=== PATIENT | female | born 1950 | race Caucasian/White ===

== ENCOUNTER 2022-07-22 11:09 | Outpatient (CLI) | payer OTHER, SELFPAY ==
[2022-07-22 15:02] LABS: Albumin* 4.9 g/dL (3.3-5.0); Chloride* 103 mmol/L (96-114)
[2022-07-22 15:03] LABS: Potassium* 3.8 mmol/L (3.6-5.1); Sodium* 140 mmol/L (135-149)
[2022-07-22 15:05] LABS: Aspartate Amino Transferase* 31 U/L (12-35); Bilirubin Total* 0.8 mg/dL (0.1-1.5); Blood Urea Nitrogen* 18 mg/dL (7-30); Carbon Dioxide* 27 mmol/L (20-32); Cholesterol* 185 mg/dL (90-199); Creatinine* 0.7 mg/dL (0.5-1.5); Estimated Glomerular Filt Rate 92 ml/min; Total Protein* 7.4 g/dL (6.0-8.3)
[2022-07-22 15:06] LABS: Alanine Aminotransferase* 20 U/L (4-35); Alkaline Phosphatase* 59 U/L (40-150); Glucose* 88 mg/dL (60-115); HDL Cholesterol* 74 mg/dL (>=50); LDL Cholesterol Calculated 85 mg/dL (<100); Triglycerides* 129 mg/dL (40-149)
[2022-07-22 16:18] LABS: Vitamin D 25 Hydroxy* 67 ng/mL (30-80)
--- NOTE | 2022-08-28 15:32 | PC.SOCIAL ---
Phone call to pt at [phone]. Informed pt that this worker received a referral from Dr. Vasquez regarding pt getting more information on services pt may qualify for due to pt's disability. Provided pt with contact information for [employer] [facility] [place] at [phone]. Informed pt that the [employer] [facility] is an excellent resource to walk through the disability process and also see what other services pt may qualify for. Pt stated she will call the [employer]. Informed pt that the Social Work Department is available to her if she has any other questions.
== END 2022-07-22 11:10 | disposition home or self-care (01) ==
PROVIDERS: PCP Family Medicine; Visit Provider Family Medicine
DX: M85.89 Other specified disorders of bone density and structure, multiple sites (principal); I10 Essential (primary) hypertension; E78.5 Hyperlipidemia, unspecified; F41.9 Anxiety disorder, unspecified
CPT/HCPCS: 80053; 80061; 82306; 84443

== ENCOUNTER 2022-08-27 13:57 | Outpatient (CLI) | payer OTHER, SELFPAY ==
--- NOTE | 2022-08-27 14:04 | CRLHL7_ITS ---
For Patients: As a result of the Cures Act, medical imaging exams and procedure reports are released immediately into your electronic medical record. You may view this report before your referring provider. If you have questions, please contact your health care provider. DXA BONE MINERAL DENSITY STUDY, 08/27/2022 Reason for exam: Osteopenia. Current height (inches): 64.0 Weight (lbs.): 105.0 Menopause age: 45 Ethnicity: White 1. Have you had a previous hip or vertebral fracture? No. 2. Have you had any fractures during your adult life which did not result from significant trauma (e.g., auto accident)? No. 3. Did either of your parents have a hip fracture? No. 4. Do you smoke? No. 5. Have you ever taken Glucocorticoids? No. 6. Do you have rheumatoid arthritis? No. 7. Do you have secondary osteoporosis? No. 8. Do you drink 3 or more alcoholic drinks per day? No. 9. Are you being treated for osteoporosis? No. 10. Have you ever taken any of the following medications: Actonel, Evista, Fosamax, Miacalcin, Reclast, Boniva, Forteo, HRT (i.e., estrogen/hormone therapy), Protelos, Prolia, Vitamin D, Calcium, other ??? please specify. ANSWER: Yes; vitamin D and calcium. 11. Do you have any of the following medical conditions: Anorexia or bulimia, asthma or emphysema, end stage renal disease, hyperparathyroidism, any seizure disorders, cancer, inflammatory bowel diseases, hysterectomy, other ??? please specify. ANSWER: No. 12. What was your maximum height (inches)? 64. 13. Do you perform weight bearing exercise regularly? Yes. 14. Do you regularly consume dairy products? Yes. 15. Do you drink caffeinated beverages? Yes. 16. At what age did your period start? 12. 17. Are you premenopausal? No. 18. How many full-term pregnancies have you had? 1. 19. Have you ever missed your period for more than 6 months in a row (not including or menopause)? No. TECHNIQUE: Bone mineral density study was performed using the [employer]. FINDINGS: The results of the study expressed as bone mineral density (BMD) are as follows: Lumbar Spine L1 to L4: BMD: 0.777 g/cm2. T-score: -2.5. Z-score: -0.2. Neck Left: BMD: 0.626 g/cm2. T-score: -2.0. Z-score: -0.1. Right: BMD: 0.692 g/cm2. T-score: -1.4. Z-score: 0.5. Total Left: BMD: 0.709 g/cm2. T-score: -1.9. Z-score: -0.3. Right: BMD: 0.685 g/cm2. T-score: -2.1. Z-score: -0.5. IMPRESSION: Osteoporosis. COMPARISON: Compared with scan of 08/07/2020, the bone mineral density has decreased by 0.5% at the spine and increased by 2.1% at the hip. *Comparison exams done prior to 03/2020 were performed on different unit, [facility]. JORGE ALBERTO JULES M.D. Diagnostic Radiologist [email or web address] Transcribed: 6:[address]/Dictated by: Jorge Alberto Jules MD @ 08/28/2022 9:20:00 AM (Electronically Signed)
--- NOTE | 2022-08-27 14:45 | PC.SOCIAL ---
Received a referral from Dr. Vasquez to follow up with pt and provide more information on how pt can apply for disability. Made a phone call to pt at [phone]. Pt's answered and informed that pt is at an appointment getting a bone scan done. Provided pt's with the phone number to the social work department and requested that pt call back this worker. states he will have pt call when she gets home. Social work will follow up as necessary.
== END 2022-08-27 13:58 | disposition home or self-care (01) ==
PROVIDERS: PCP Family Medicine; Visit Provider Family Medicine
DX: M85.80 Other specified disorders of bone density and structure, unspecified site (principal); M81.0 Age-related osteoporosis without current pathological fracture
CPT/HCPCS: 77080

== ENCOUNTER 2022-12-09 13:15 | Outpatient (CLI) | payer OTHER, SELFPAY ==
--- NOTE | 2022-12-09 13:20 | CRLHL7_ITS ---
For Patients: As a result of the Century Cures Act, medical imaging exams and procedure reports are released immediately into your electronic medical record. You may view this report before your referring provider. If you have questions, please contact your health care provider. BILATERAL SCREENING MAMMOGRAM WITH COMPUTER-AIDED DETECTION AND TOMOSYNTHESIS TECHNIQUE: CC and MLO views were obtained. These mammographic images have been obtained using full-field digital technique. These mammographic images were interpreted with the benefit of computer-aided detection. Breast Tomosynthesis was used in this interpretation. COMPARISON FILM: 09/19/21, 08/12/20, 08/09/19. FINDINGS: There are scattered areas of fibroglandular density IMPRESSION: There is no radiographic evidence for malignancy. ASSESSMENT: BI-RADS Category 2: Benign RECOMMENDATION: Routine screening mammogram in 1 year. A lay language report of this examination will be provided to the patient. Damon Louis M.D. Diagnostic/Nuclear Medicine Radiologist [email or web address] EDU/Dictated by: Damon Louis MD @ 12/10/2022 8:19:00 AM (Electronically Signed)
== END 2022-12-09 13:16 | disposition home or self-care (01) ==
LOC: MAMMO 13:15
PROVIDERS: PCP Family Medicine; Visit Provider Family Medicine
DX: Z12.31 Encounter for screening mammogram for malignant neoplasm of breast (principal)
CPT/HCPCS: 77063; 77067

== ENCOUNTER 2023-02-08 11:32 | Outpatient (CLI) | payer OTHER, SELFPAY | END 2023-02-08 11:33 | disposition home or self-care (01) | LOC: NFLDREF 11:33 | PROVIDERS: PCP Family Medicine; Visit Provider Obstetrics & Gynecology | DX: R32 Unspecified urinary incontinence (principal) | CPT/HCPCS: 87086 ==

== ENCOUNTER 2023-08-25 10:08 | Outpatient (CLI) | payer OTHER, SELFPAY ==
--- OUTSIDE RECORDS SUMMARY | 2023-08-31 12:00 | XMS_ITS | Continuity of Care Document ---
Author Name Unknown Organization [facility] Address [address] [place] [address] Phone Care Team Providers Care Sheet Rock Applier Name Role Phone Rosemary Butts MD Unavailable Unavailable Allergies, Adverse Reactions, Alerts Substance Reaction Status Criticality codeine Active No Information CEPHALEXIN MONOHYDRATE Active No In formation Medications Medication Instructions Dosage Effective Dates (start - stop) Status Comments tramadol 50 mg tablet TAKE ONE TABLET BY MOUTH TWICE A DAY - Active Fosamax 70 mg tablet take 1 tablet by oral route every week in the morning, at least 30 min before first food, beverage, or medication of day 70 MG - Active SULFASALAZINE 500 MG Tablet Delayed Release TAKE 3 TABLETS TWICE DAILY - Active methotrexate sodium 2.5 mg tablet take 6 tablet by oral route every week 6 tablet - Active folic acid 1 mg tablet TAKE ONE TABLET B Y MOUTH ONCE DAILY - Active pilocarpine 5 mg tablet take 1 tablet by oral route 3-4 times every day - Active ORPHENADRINE CITRATE ER 100 MG Tablet Extended Release 12 Hour TAKE 1 TABLET AT BEDTIME NEEDED - Active Nitrostat 0.[address] 1 tablet by sublingual route at the first sign of an attack; no more than 3 tabs are recommended within a 15 minute period. 0.3 MG - Active aspirin 81 mg tablet,delayed release take 1 tablet by oral route every day 81 MG - Active multivitamin tablet - Active omeprazole 20 mg tablet,delayed release take 1 capsule by oral route every day 1 capsule - Active metoprolol succinate ER 25 mg tablet,extended release 24 hr take 1 tablet by oral route every day 25 MG - Active Restasis 0.05 % eye drops in a dropperette instill 1 drop by ophthalmic route every 12 hours into affected eye(s) 1.00 drop - Active rosuvastatin 40 mg tablet take 1 tablet by oral route every day 40 MG - Active Tylenol Arthritis 650 mg Tab take 2 tablet (1300MG) by oral route 2 times every day 1300 MG - Active Citracal + D Slow Release 600 mg calcium-500 unit Tab, ER take 2 daily - Active Procedures Procedure Date Office/Outpatient Visit, Est Routine Venipuncture Specimen Handling Office/Outpatient Visit, Est Routine Venipuncture Specimen Handling Us Extremity Non-Vasc Real-Time Img Comp l Office/Outpatient Visit, Est Routine Venipuncture Specimen Handling Office/Outpatient Visit, Est Routine Venipuncture Specimen Handling Us Extremity Non-Vasc Real-Time Img Comp l Office/Outpatient Visit, Est Routine Venipuncture Specimen Handling Office/Outpatient Visit, Est Routine Venipuncture Specimen Handling Office/Outpatient Visit, Est Office/Outpatient Visit, Est Routine Venipuncture Assay Of Serum Albumin Assay Of Creatinine Transferase (Ast) (Sgot) Alanine Amino (Alt) (Sgpt) Urinalysis Nonauto W/O Scope Complete Cbc WAuto Diff Wbc Office/Outpatient Visit, Est Routine Venipuncture Specimen Handling Assay Of Serum Albumin Assay Of Creatinine Transferase (Ast) (Sgot) Alanine Amino (Alt) (Sgpt) Vitamin D 25 Hydroxy Complete Cbc WAuto Diff Wbc Phone E/M By Phys 11-20 Min Office/Outpatient Visit, Est Office/Outpatient Visit, Est Office/Outpatient Visit, Est Office/Outpatient Visit, Est Office/Outpatient Visit, Est Routine Venipuncture Complete Cbc WAuto Diff Wbc Assay Of Serum Albumin Assay Of Creatinine Transferase (Ast) (Sgot) Alanine Amino (Alt) (Sgpt) Office/Outpatient Visit, Est Routine Venipuncture Complete Cbc WAuto Diff Wbc Transferase (Ast) (Sgot) Urinalysis Nonauto W/O Scope Office/Outpatient Visit, Est Routine Venipuncture Complete Cbc WAuto Diff Wbc Assay Of Serum Albumin Assay Of Creatinine Transferase (Ast) (Sgot) Alanine Amino (Alt) (Sgpt) Urinalysis Nonauto W/O Scope Office/Outpatient Visit, Est Routine Venipuncture Complete Cbc WAuto Diff Wbc Transferase (Ast) (Sgot) Urinalysis Nonauto W/O Scope Routine Venipuncture Complete Cbc WAuto Diff Wbc Assay Of Serum Albumin Assay Of Creatinine Transferase (Ast) (Sgot) Alanine Amino (Alt) (Sgpt) Office/Outpatient Visit, Est Routine Venipuncture Complete Cbc WAuto Diff Wbc Transferase (Ast) (Sgot) Alanine Amino (Alt) (Sgpt) Urinalysis Nonauto W/O Scope Routine Venipuncture Complete Cbc WAuto Diff Wbc Assay Of Serum Albumin Assay Of Creatinine Transferase (Ast) (Sgot) Alanine Amino (Alt) (Sgpt) Office/Outpatient Visit, Est Routine Venipuncture Complete Cbc WAuto Diff Wbc Transferase (Ast) (Sgot) Urinalysis Nonauto W/O Scope Routine Venipuncture Complete Cbc WAuto Diff Wbc Assay Of Serum Albumin Assay Of Creatinine Transferase (Ast) (Sgot) Alanine Amino (Alt) (Sgpt) Office/Outpatient Visit, Est Routine Venipuncture Complete Cbc WAuto Diff Wbc Transferase (Ast) (Sgot) Urinalysis Nonauto W/O Scope Routine Venipuncture Complete Cbc WAuto Diff Wbc Assay Of Serum Albumin Assay Of Creatinine Transferase (Ast) (Sgot) Alanine Amino (Alt) (Sgpt) Office/Outpatient Visit, Est Routine Venipuncture Complete Cbc WAuto Diff Wbc Transferase (Ast) (Sgot) Urinalysis Nonauto W/O Scope Routine Venipuncture Complete Cbc WAuto Diff Wbc Assay Of Serum Albumin Assay Of Creatinine Transferase (Ast) (Sgot) Alanine Amino (Alt) (Sgpt) Urinalysis Nonauto W/O Scope Office/Outpatient Visit, Est Routine Venipuncture Complete Cbc WAuto Diff Wbc Transferase (Ast) (Sgot) Urinalysis Nonauto W/O Scope Routine Venipuncture Complete Cbc WAuto Diff Wbc Urinalysis Nonauto W/O Scope Assay Of Serum Albumin Assay Of Creatinine Transferase (Ast) (Sgot) Alanine Amino (Alt) (Sgpt) Office/Outpatient Visit, Est Routine Venipuncture Complete Cbc WAuto Diff Wbc Transferase (Ast) (Sgot) Urinalysis Nonauto W/O Scope Routine Venipuncture Complete Cbc WAuto Diff Wbc Urinalysis Nonauto W/O Scope Assay Of Serum Albumin Assay Of Creatinine Transferase (Ast) (Sgot) Alanine Amino (Alt) (Sgpt) Office/Outpatient Visit, Est Urinalysis Nonauto W/O Scope Routine Venipuncture Specimen Handling Complete Cbc WAuto Diff Wbc Assay Of Serum Albumin Assay Of Creatinine Transferase (Ast) (Sgot) Alanine Amino (Alt) (Sgpt) Office/Outpatient Visit, Est Routine Venipuncture Complete Cbc WAuto Diff Wbc Transferase (Ast) (Sgot) Urinalysis Nonauto W/O Scope Routine Venipuncture Complete Cbc WAuto Diff Wbc Urinalysis Nonauto W/O Scope Assay Of Serum Albumin Assay Of Creatinine Transferase (Ast) (Sgot) Alanine Amino (Alt) (Sgpt) Office/Outpatient Visit, Est Routine Venipuncture Complete Cbc WAuto Diff Wbc Transferase (Ast) (Sgot) Urinalysis Nonauto W/O Scope Routine Venipuncture Complete Cbc WAuto Diff Wbc Urinalysis Nonauto W/O Scope Assay Of Serum Albumin Assay Of Creatinine Transferase (Ast) (Sgot) Alanine Amino (Alt) (Sgpt) Office/Outpatient Visit, Est Routine Venipuncture Complete Cbc WAuto Diff Wbc Assay Of Creatinine Transferase Ast Sgot Urinalysis Nonauto W/O Scope Routine Venipuncture Complete Cbc WAuto Diff Wbc Urinalysis Nonauto W/O Scope Assay Of Serum Albumin Assay Of Creatinine Transferase Ast Sgot Alanine Amino Alt Sgpt Office/Outpatient Visit, Est Prescription Generated Per ERX 13 Routine Venipuncture Complete Cbc WAuto Diff Wbc Transferase Ast Sgot Urinalysis Nonauto W/O Scope Routine Venipuncture Complete Cbc WAuto Diff Wbc Urinalysis Nonauto W/O Scope Assay Of Serum Albumin Assay Of Creatinine Transferase Ast Sgot Alanine Amino Alt Sgpt Office/Outpatient Visit, Est Routine Venipuncture Complete Cbc WAuto Diff Wbc Transferase Ast Sgot Urinalysis Nonauto W/O Scope Urinalysis Nonauto W/O Scope Routine Venipuncture Complete Cbc WAuto Diff Wbc Assay Of Serum Albumin Assay Of Creatinine Transferase Ast Sgot Alanine Amino Alt Sgpt Anti Rheum Drugthxpyrx'D/Gvn Routine Venipuncture Complete Cbc WAuto Diff Wbc Transferase Ast Sgot Urinalysis Nonauto W/O Scope Advance Directives Directive Yes / No Effective Date File Name No Information Encounters Encounter Description Practice Location Reason(s) For Visit Diagnoses Date Provider Providers Copied on Encounter [facility] , [address], [place], [address], [place] tel:[phone] [facility] , No Information 3 Benjamín Riley. [address], [address], [place], [address], [place]. tel:[phone] [facility] , [address], [place], [address], [place] tel:[phone] [facility] , No Information 3 Benjamín Riley. [address], [address], [place], [address], [place]. tel:[phone] Office/Outpa tient Visit, Est [facility] , [address], [place], [address], [place] tel:[phone] [facility] , No Information 3 Benjamín Riley. [address], [address], [place], [address], [place]. tel:[phone] Referring Provider: Rosemary Butts, [address], [place], [address]. tel:[phone] [facility] , [address], [place], [address], [place] tel:[phone] [facility] , No Information 3 Benjamín Rosemary. [address], [address], [place], [address], [place]. tel:[phone] [facility] , [address], [place], [place], [facility], [place] tel:[phone] [facility] , No Information 3 Benjamín Riley. [address], [address], [place], [place], [facility], [place]. tel:[phone] Office/Outpa tient Visit, Est [facility] , [address], [place], [place], [facility], [place] tel:[phone] [facility] , Rheumatoid arthritis (chief complaint)Yan gregory (chief complaint)Dr eddie dumont (chief complaint) Other senior care (current) drug therapyIntra cardiac thrombosis, not elsewhere classifiedOt her chronic painRheumato id arthritis with rheumatoid factor of multiple sites without organ or systems involvementS jogren syndrome, unspecifiedP ain in unspecified shoulder 3 Benjamín Rosemary. [address], [address], [place], [place], [facility], [place]. tel:[phone] Referring Provider: Rosemary Butts, [address], [place], [place], [facility]. tel:[phone] [facility] , [address], [place], [place], [facility], [place] tel:[phone] [facility] , No Information 3 Benjamín Rosemary. [address], [address], [place], [place], [facility], [place]. tel:[phone] [facility] , [address], [place], [place], [facility], [place] tel:[phone] [facility] , No Information 3 Benjamín Riley. [address], [address], [place], [address], [place]. tel:[phone] Office/Outpa tient Visit, Est [facility] , [address], [place], [address], [place] tel:[phone] [facility] , Rheumatoid arthritis (chief complaint)Sj ogren's (chief complaint)Dr morgan monitoring (chief complaint) Other chronic painRheumato id arthritis with rheumatoid factor of multiple sites without organ or systems involvementS jogren syndrome, unspecifiedO ther senior care (current) drug therapyIntra cardiac thrombosis, not elsewhere classifiedPa in in joints of left handPain in left wrist 3 Benjamín Riley. [address], [address], [place], [address], [place]. tel:[phone] Referring Provider: Rosemary Butts, [address], [place], [address]. tel:[phone] Office/Outpa tient Visit, Est [facility] , [address], [place], [address], [place] tel:[phone] [facility] , Rheumatoid arthritis (chief complaint)Yan gregory (chief complaint)Dr morgan monitoring (chief complaint) Other chronic painRheumato id arthritis with rheumatoid factor of multiple sites without organ or systems involvementS jogren syndrome, unspecifiedO ther [employer] (current) drug therapyIntra cardiac thrombosis, not elsewhere classified 2 Benjamín Riley. [address], [address], [place], [address], [place]. tel:[phone] Referring Provider: Rosemary Butts, [address], [place], [address]. tel:[phone] Office/Outpa tient Visit, Est [facility] , [address], [place], [address], [place] tel:[phone] [facility] , Rheumatoid arthritis (chief complaint)Yan bran'pritesh (chief complaint)Dr morgan monitoring (chief complaint) Other chronic painRheumato id arthritis with rheumatoid factor of multiple sites without organ or systems involvementS jogren syndrome, unspecifiedO ther senior care (current) drug therapyPain in left wristPain in joints of left handIntracar diac thrombosis, not elsewhere classified 2 Benjamín Riley. [address], [address], [place], [address], [place]. tel:[phone] Referring Provider: Rosemary Butts, [address], [place], [address]. tel:[phone] Office/Outpa tient Visit, Est [facility] , [address], [place], [address], [place] tel:[phone] [facility] , Rheumatoid arthritis (chief complaint)Yan gregory (chief complaint)Dr morgan monitoring (chief complaint) Other chronic painRheumato id arthritis with rheumatoid factor of multiple sites without organ or systems involvementS jogren syndrome, unspecifiedO ther [employer] (current) drug therapy 2 Benjamín Riley. [address], [address], [place], [address], [place]. tel:[phone] Referring Provider: Rosemary Butts, [address], [place], [address]. tel:[phone] [facility] , [address], [place], [address], [place] tel:[phone] [facility] No Information 1 Federico Stokes. [facility] [address], [place], [address], [place]. tel:[phone] Office/Outpa tient Visit, Est [facility] , [address], [place], [address], [place] tel:[phone] [facility] , Rheumatoid arthritis (chief complaint)Sj ogren's (chief complaint)Dr morgan monitoring (chief complaint) Rheumatoid arthritis with rheumatoid factor of multiple sites without organ or systems involvementS jogren syndrome, unspecifiedO ther chronic painOther senior care (current) drug therapy 0 1 Federico Stokes. [facility] [address], [place], [address], [place]. tel:[phone] Referring Provider: Divya Pedraza, [facility] [address], [place], [address]. tel:[phone] Office/Outpa tient Visit, Est [facility] , [address], [place], [address], [place] tel:[phone] [facility] , Rheumatoid arthritis (chief complaint)Yan ogberonica's (chief complaint)Os teopenia (chief complaint)Dr morgan monitoring (chief complaint) Rheumatoid arthritis with rheumatoid factor of multiple sites without organ or systems involvementS icca syndrome, unspecifiedO ther senior care (current) drug therapyOther chronic pain 1 Federico Stokes. [facility] [address], [place], [address], [place]. tel:[phone] Referring Provider: Divya Pedraza, [facility] [address], [place], [address]. tel:[phone] [facility] , [address], [place], [address], [place] tel:[phone] [facility] , No Information 1 Federico Stokes. [facility] [address], [place], [address], [place]. tel:[phone] Referring Provider: Divya Pedraza, [facility] [address], [place], [address]. tel:[phone] Office/Outpa tient Visit, Est [facility] , [address], [place], [address], [place] tel:[phone] [facility] , Rheumatoid arthritis (chief complaint)Yan gregory (chief complaint)Dr morgan monitoring (chief complaint) Rheumatoid arthritis with rheumatoid factor of multiple sites without organ or systems involvementS icca syndrome, unspecifiedO steopeniaEnc ounter for screening for other viral diseasesOthe r superintendent [employer] (current) drug therapy 0 Federico Stokes. [facility] [address], [place], [address], [place]. tel:[phone] Referring Provider: Divya Pedraza, [facility] [address], [place], [address]. tel:[phone] Phone E/M By Phys 11-20 Min [facility] , [address], [place], [address], [place] tel:[phone] Telehealth Rheumatoid arthritis (chief complaint)Yan gregory (chief complaint)Dr morgan monitoring (chief complaint) Rheu arthritis w rheu factor mult site w/o org/sys involvSicca syndrome, unspecifiedO ther [employer] (current) drug therapy 0 Federico Stokes. [facility] [address], [place], [address], [place]. tel:[phone] Referring Provider: Divya Pedraza, [facility] [address], [place], [address]. tel:[phone] Office/Outpa tient Visit, Est [facility] , [address], [place], [address], [place] tel:[phone] [facility] , Rheumatoid arthritis (chief complaint)Sj ogren's (chief complaint)We ight loss (chief complaint)Dr morgan monitoring (chief complaint) Rheu arthritis w rheu factor mult site w/o org/sys involvSicca syndrome, unspecifiedO ther senior care (current) drug therapy 9 Federico Stokes. [facility] [address], [place], [address], [place]. tel:[phone] Referring Provider: Divya Pedraza, [facility] [address], [place], [address]. tel:[phone] Office/Outpa tient Visit, Est [facility] , [address], [place], [address], [place] [phone] [facility] , Rheumatoid arthritis (chief complaint)Sj ogren's syndrome (chief complaint)We ight loss (chief complaint)Dr morgan monitoring (chief complaint) Rheu arthritis w rheu factor mult site w/o org/sys involvSicca syndrome, unspecifiedA bnormal weight lossOther [employer] (current) drug therapy 9 Federico Stokes. [facility] [address], [place], [address], [place]. tel:[phone] Referring Provider: Divya Pedraza, [facility] [address], [place], [address]. tel:[phone] Office/Outpa tient Visit, Est [facility] , [address], [place], [address], [place] tel:[phone] [facility] , Rheumatoid arthritis (chief complaint)Sj ogren's (chief complaint)Dr morgan monitoring (chief complaint) Rheu arthritis w rheu factor mult site w/o org/sys involvSicca syndrome, unspecifiedO ther [employer] (current) drug therapy 9 Federico Stokes. [facility] [address], [place], [address], [place]. tel:[phone] Referring Provider: Divya Pedraza, [facility] [address], [place], [address]. tel:[phone] Office/Outpa tient Visit, Est [facility] , [address], [place], [address], [place] tel:[phone] [facility] , Rheumatoid arthritis (chief complaint)Sj ogren's (chief complaint)Dr morgan monitoring (chief complaint) Rheu arthritis w rheu factor mult site w/o org/sys involvSicca syndrome, unspecifiedO ther senior care (current) drug therapy 8 Federico Stokes. [facility] [address], [place], [address], [place]. tel:[phone] Referring Provider: Divya Pedraza, [facility] [address], [place], [address]. tel:[phone] Office/Outpa tient Visit, Est [facility] , [address], [place], [address], [place] tel:[phone] [facility] , Rheumatoid arthritis (chief complaint)Sj ogren's (chief complaint)Moi kee (chief complaint)Dr cb sahu (chief complaint)Dr morgan monitored (chief complaint) RA w/ rheumatoid factor of multiple sitesSicca syndromeLong term current drug therapyHeart burnPleurisy May-0 8 Federico Stokes. [facility] [address], [place], [address], [place]. tel:[phone] Referring Provider: Divya Pedraza, [facility] [address], [place], [address]. tel:[phone] Office/Outpa tient Visit, Est [facility] , [address], [place], [address], [place] tel:[phone] [facility] , Rheumatoid arthritis (chief complaint)Yan gregory (chief complaint)Dr eddie dumont (chief complaint) RA w/ rheumatoid factor of multiple sitesCervica lgiaLong term current drug therapySicca syndrome Apr-0 8 Federico Stokes. [facility] [address], [place], [address], [place]. tel:[phone] Referring Provider: Divya Pedraza, [facility] [address], [place], [address]. tel:[phone] Office/Outpa tient Visit, Est [facility] , [address], [place], [address], [place] tel:[phone] [facility] , Rheumatoid arthritis (chief complaint)Yan gregory (chief complaint)GE RD (chief complaint)Mo nitor Chronic High Risk Meds (chief complaint) RA w/ rheumatoid factor of multiple sitesSicca syndromeLong term current drug therapy 7 Federico Stokes. [facility] [address], [place], [address], [place]. tel:[phone] Referring Provider: Divya Pedraza, [facility] [address], [place], [address]. tel:[phone] Office/Outpa tient Visit, Est [facility] , [address], [place], [address], [place] tel:[phone] [facility] , Rheumatoid arthritis (chief complaint)Yan bran's (chief complaint)Dr morgan monitoring (chief complaint) RA w/ rheumatoid factor of multiple sitesSicca syndromeLong term current drug therapy 7 Federico Stokes. [facility] [address], [place], [address], [place]. tel:[phone] Referring Provider: Divya Pedraza, [facility] [address], [place], [address]. tel:[phone] [facility] , [address], [place], [address], [place] tel:[phone] [facility] , No Information 7 Federico Stokes. [facility] [address], [place], [address], [place]. tel:[phone] Referring Provider: Divya Pedraza, [facility] [address], [place], [address]. tel:[phone] Office/Outpa tient Visit, Est [facility] , [address], [place], [address], [place] tel:[phone] [facility] , Rheumatoid arthritis (chief complaint)Dr morgan monitoring (chief complaint) RA w/ rheumatoid factor of multiple sitesSicca syndromeLong term current drug therapy 7 Federico Jody. [facility] [facility] [address], [place], [address], [place]. tel:[phone] Referring Provider: Divya Pedraza, [facility] [address], [place], [address]. tel:[phone] [facility] , [address], [place], [address], [place] tel:[phone] [facility] , No Information 7 Federico Stokes. [facility] [address], [place], [address], [place]. tel:[phone] Referring Provider: Divya Pedraza, [facility] [address], [place], [address]. tel:[phone] Office/Outpa tient Visit, Est [facility] , [address], [place], [address], [place] tel:[phone] [facility] , Rheumatoid arthritis (chief complaint)Ne ck/back pain (chief complaint)In [facility] (chief complaint)Dr morgan monitoring (chief complaint) RA w/ rheumatoid factor of multiple sitesSicca syndromeCerv icalgiaInsom niaLong term current drug therapy 0 6 Federico Stokes. [facility] [address], [place], [address], [place]. tel:[phone] Referring Provider: Divya Pedraza, [facility] [address], [place], [address]. tel:[phone] [facility] , [address], [place], [address], [place] tel:[phone] [facility] , No Information 6 Federico Stokes. [facility] [address], [place], [address], [place]. tel:[phone] Referring Provider: Divya Pedraza, [facility] [address], [place], [address]. tel:[phone] Office/Outpa tient Visit, Est [facility] , [address], [place], [address], [place] tel:[phone] [facility] , Rheumatoid arthritis (chief complaint)Yan gregory (chief complaint)Dr eddie dumont (chief complaint) RA w/ rheumatoid factor of multiple sitesSicca syndromeLong term current drug therapy 6 Federico Stokes. [facility] [address], [place], [address], [place]. tel:[phone] Referring Provider: Divya Pedraza, [facility] [address], [place], [address]. tel:[phone] [facility] , [address], [place], [address], [place] tel:[phone] [facility] , No Information 6 Federico Stokes. [facility] [address], [place], [address], [place]. tel:[phone] Referring Provider: Divya Pedraza, [facility] [address], [place], [address]. tel:[phone] Office/Outpa tient Visit, Est [facility] , [address], [place], [address], [place] tel:[phone] [facility] , Rheumatoid arthritis (chief complaint)Sj ogren's (chief complaint)Mo nitor Chronic High Risk Meds (chief complaint) RA w/ rheumatoid factor of multiple sitesSicca syndromeLong term current drug therapy Federico Stokes. [facility] [address], [place], [address], [place]. tel:[phone] Referring Provider: Divya Pedraza, [facility] [address], [place], [address]. tel:[phone] [facility] , [address], [place], [address], [place] tel:[phone] [facility] , No Information Federico Stokes. [facility] [address], [place], [address], [place]. tel:[phone] Referring Provider: Divya Pedraza, [facility] [address], [place], [address]. tel:[phone] Office/Outpa tient Visit, Est [facility] , [address], [place], [address], [place] tel:[phone] [facility] , Rheumatoid arthritis (chief complaint)Sj ogren's (chief complaint)Mo nitor Chronic High Risk Meds (chief complaint) Rheumatoid arthritisSj? ??gren's syndromeTher apeutic Drug Monitoring 5 Federico Stokes. [facility] [address], [place], [address], [place]. tel:[phone] Referring Provider: Divya Pedraza, [facility] [address], [place], [address]. tel:[phone] [facility] , [address], [place], [address], [place] tel:[phone] [facility] , No Information 5 Chito Mckeon. [facility] [address], [place], [address], [place]. tel:[phone] Referring Provider: Mike Dalton, [facility] [address], [place], [address]. tel:[phone] Office/Outpa tient Visit, Est [facility] , [address], [place], [address], [place] tel:[phone] [facility] , Rheumatoid arthritis (chief complaint)Sj ogren's (chief complaint)Mo nitor Chronic High Risk Meds (chief complaint) Rheumatoid ArthritisSj? ??gren's syndromeTher apeutic Drug Monitoring 5 Federico Stokes. [facility] [address], [place], [address], [place]. tel:[phone] Referring Provider: Divya Pedraza, [facility] [address], [place], [address]. tel:[phone] [facility] , [address], [place], [address], [place] tel:[phone] [facility] , Monitor chronic high risk medications (chief complaint) No Information 5 Federico Stokes. [facility] [address], [place], [address], [place]. tel:[phone] Referring Provider: Divya Pedraza, [facility] [address], [place], [address]. tel:[phone] Office/Outpa tient Visit, Est [facility] , [address], [place], [address], [place] tel:[phone] [facility] , Rheumatoid Arthritis (chief complaint)Sj ogren's (chief complaint)Dr morgan monitoring (chief complaint) Rheumatoid ArthritisSic ca syndromeFrac ture of unspecified part of humerus, closedUnspec ified visual disturbanceT herapeutic Drug Monitoring 4 Federico Stokes. [facility] [address], [place], [address], [place]. tel:[phone] Referring Provider: Divya Pedraza, [facility] [address], [place], [address]. tel:[phone] [facility] , [address], [place], [address], [place] tel:[phone] [facility] , No Information 4 Chito Mckeon. [facility] [address], [place], [address], [place]. tel:[phone] Referring Provider: Mike Dalton, [facility] [address], [place], [address]. tel:[phone] Office/Outpa tient Visit, Est [facility] , [address], [place], [address], [place] tel:[phone] [facility] , Rheumatoid Arthritis (chief complaint)Sj ogren's (chief complaint)Mo nitor chronic medications (chief complaint) Rheumatoid ArthritisFra cture of unspecified part of humerus, closedTherap eutic Drug Monitoring 4 Federico Stokes. [facility] [address], [place], [address], [place]. tel:[phone] Referring Provider: Divya Pedraza, [facility] [address], [place], [address]. tel:[phone] [facility] , [address], [place], [address], [place] tel:[phone] [facility] , Monitor chronic high risk medications (chief complaint) No Information 4 Federico Stokes. [facility] [address], [place], [address], [place]. tel:[phone] Referring Provider: Divya Pedraza, [facility] [address], [place], [address]. tel:[phone] Office/Outpa tient Visit, Est [facility] , [address], [place], [address], [place] tel:[phone] [facility] , Rheumatoid Arthritis (chief complaint)Sj ogren's (chief complaint)Mo nitor chronic high risk medications (chief complaint) Rheumatoid ArthritisSic ca syndromeTher apeutic Drug Monitoring 4 Federico Stokes. [facility] [address], [place], [address], [place]. tel:[phone] Referring Provider: Divya Pedraza, [facility] [address], [place], [address]. tel:[phone] [facility] , [address], [place], [address], [place] tel:[phone] [facility] , Monitor chronic high risk medications (chief complaint) No Information 3 Kenji Chung. [facility] [address], [place], [address], [place]. tel:[phone] Referring Provider: Juliet Jimenes, [facility] [address], [place], [address]. tel:[phone] Office/Outpa tient Visit, Est [facility] , [address], [place], [address], [place] tel:[phone] [facility] , Rheumatoid Arthritis (chief complaint)Yan gregory (chief complaint)Dr morgan monitoring (chief complaint) Rheumatoid ArthritisPai n in joint involving forearmDisor sherwin of bone and cartilage, unspecifiedT herapeutic Drug Monitoring 3 Federico Stokes. [facility] [address], [place], [address], [place]. tel:[phone] Referring Provider: Divya Pedraza, [facility] [address], [place], [address]. tel:[phone] [facility] , [address], [place], [address], [place] tel:[phone] [facility] , Monitor chronic high risk medications (chief complaint) No Information 3 Kenji Chung. [facility] [address], [place], [address], [place]. tel:[phone] Referring Provider: Juliet Jimenes, [facility] [address], [place], [address]. tel:[phone] Office/Outpa tient Visit, Est [facility] , [address], [place], [address], [place] tel:[phone] [facility] , Rheumatoid Arthritis (chief complaint)Sj ogren's (chief complaint)Mo nitor chronic high risk medications (chief complaint) Rheumatoid ArthritisSic ca syndromeTher apeutic Drug Monitoring 3 Federico Stokes. [facility] [address], [place], [address], [place]. tel:[phone] Referring Provider: Divya Pedraza, [facility] [address], [place], [address]. tel:[phone] [facility] , [address], [place], [address], [place] tel:[phone] [facility] , No Information 3 Federico Stokes. [facility] [address], [place], [address], [place]. tel:[phone] Referring Provider: Divya Pedraza, [facility] [address], [place], [address]. tel:[phone] Office/Outpa tient Visit, Est [facility] , [address], [place], [address], [place] tel:[phone] [facility] , Rheumatoid Arthritis (chief complaint)Sj ogren's (chief complaint)Mo nitor chronic high risk medications (chief complaint) Rheumatoid ArthritisDis order of bone and cartilage, unspecifiedT herapeutic Drug Monitoring Ziggy 3 Federico Stokes. [facility] [address], [place], [address], [place]. tel:[phone] Referring Provider: Divya Pedraza, [facility] [address], [place], [address]. tel:[phone] [facility] , [address], [place], [address], [place] tel:[phone] [facility] , Rheumatoid Arthritis (chief complaint)Sj ogren's (chief complaint)Mo nitor chronic high risk medications (chief complaint) Rheumatoid ArthritisSic ca syndromeTher apeutic Drug Monitoring 2 Federico Stokes. [facility] [address], [place], [address], [place]. tel:[phone] Referring Provider: Divya Pedraza, [facility] [address], [place], [address]. tel:[phone] [facility] , [address], [place], [address], [place] tel:[phone] [facility] , No Information 2 Federico Stokes. [facility] [address], [place], [address], [place]. tel:[phone] Referring Provider: Divya Pedraza, [facility] [address], [place], [address]. tel:[phone] Family History Family Member Type Diagnosis Age At Onset Brother Problem (finding) Asthma, allergies Problem (finding) Father Problem (finding) chronic obstructive nickie g disease Mother Problem (finding) HTN, Breast CA, osteopo rosis, OA Payers Payer name Insurance type Covered constitution party ID Authoriza tion(s) [employer] Medicare Plans [id number] Social History Type Description Quantity Date Captured Comments Sex Female Smoking Status No Information Chief Complaint And Reason For Visit No Information Reason For Referral Reason For Referral No Information History Of Present Illness Encounter Date Complaint History Of Prese nt Illness Rheumatoid arthritis Sjogren's Drug monitoring Rheumatoid arthritis Sjogren's Drug monitoring Rheumatoid arthritis Sjogren's Drug monitoring Rheumatoid arthritis Sjogren's Drug monitoring Rheumatoid arthritis Sjogren's Drug monitoring Rheumatoid arthritis Sjogren's Drug monitoring Rheumatoid arthritis Sjogren's Osteopenia Drug monitoring Rheumatoid arthritis Sjogren's Drug monitoring Rheumatoid arthritis Sjogren's Drug monitoring Rheumatoid arthritis Sjogren's Weight loss Drug monitoring Rheumatoid arthritis Sjogren's syndrome Weight loss Drug monitoring Rheumatoid arthritis Sjogren's Drug monitoring Rheumatoid arthritis Sjogren's Drug monitoring Rheumatoid arthritis Sjogren's Heartburn Dry cough Drug monitored Rheumatoid arthritis Sjogren's Drug monitoring Rheumatoid arthritis Sjogren's GERD Monitor Chronic High Risk Meds Rheumatoid arthritis Sjogren's Drug monitoring Rheumatoid arthritis Drug monitoring Rheumatoid arthritis Neck/back pain Insomnia Drug monitoring Rheumatoid arthritis Sjogren's Drug monitoring Rheumatoid arthritis Sjogren's Monitor Chronic High Risk Meds Rheumatoid arthritis Sjogren's Monitor Chronic High Risk Meds Sjogren's Monitor Chronic High Risk Meds Rheumatoid arthritis Functional Status Date Functional Assessmen t No Information Instructions Date Instruction Additional Infor matpeggy Labs will be done to day to monitor for drug toxicity. Related to Therapeutic Drug Monitoring The patient will con tinue the current medical regimen without change. Related to Rheumatoid Arthritis Assessments Type Assessment Date No Information Patient Care Teams Name Effective Dates (start - stop) Status Members No Information
== END 2023-08-25 10:09 | disposition home or self-care (01) ==
LOC: NFLDREF 08-31 11:57
PROVIDERS: PCP Internal Medicine; Referring Provider Internal Medicine; Visit Provider Internal Medicine
DX: E78.5 Hyperlipidemia, unspecified (principal); I10 Essential (primary) hypertension
CPT/HCPCS: 80048; 80061

== ENCOUNTER 2023-12-13 09:51 | Outpatient (CLI) | payer OTHER, SELFPAY ==
--- NOTE | 2023-12-13 10:15 | MM_ITS ---
Final Report Patient: QUE SANCHEZ Facility:?[facility] Patient ID:?[id number] Study:?XRay Breast Bilateral 3D W/CAD-12/13/2023 10:27:44 AM Ordering Physician:Love Carmen Final Report: BILATERAL SCREENING MAMMOGRAM WITH COMPUTER-AIDED DETECTION AND TOMOSYNTHESIS TECHNIQUE: CC and MLO views were obtained. These mammographic images have been obtained using full-field digital technique. These mammographic images were interpreted with the benefit of computer-aided detection. Breast Tomosynthesis was used in this interpretation. COMPARISON FILM: 12/09/22, 09/19/21, 08/12/20. FINDINGS: There are scattered areas of fibroglandular density. IMPRESSION: There is no radiographic evidence for malignancy. ASSESSMENT: BI-RADS Category 2: Benign RECOMMENDATION: Routine screening mammogram in 1 year. A lay language report of this examination will be provided to the patient. Jorge Alberto Merrill M.D. Diagnostic Radiologist [email or web address] DSM/sp R& Transcribed: 5:14 p.m. SP/Dictated by: Jorge Alberto Merrill MD @ 12/13/2023 10:39:00 AM SP/Dictated by: Jorge Alberto Merrill MD @ 12/13/2023 10:39:00 AM (Electronic Signature)
== END 2023-12-13 09:52 | disposition home or self-care (01) ==
LOC: MAMMO 09:51
PROVIDERS: PCP Internal Medicine; Visit Provider Internal Medicine
DX: Z12.31 Encounter for screening mammogram for malignant neoplasm of breast (principal)
CPT/HCPCS: 77063; 77067

== ENCOUNTER 2024-01-07 16:06 | Emergency (ER) | payer OTHER, SELFPAY ==
[2024-01-07 16:24] VITALS: BP 145/76; PULSE 67; RESP 18; TEMP 36.4; O2SAT 98; BMI 18.5
--- NOTE | 2024-01-07 19:35 | ED.SOB ---
HPI - SOB/Dyspnea General Chief Complaint: Shortness of Breath/Dyspnea Stated Complaint: shortness of breath, heart pain Time Seen by Provider: 01/07/24 17:44 History of Present Illness HPI Narrative: This patient registered at ER triage but left without being seen. Related Data Home Medications Medication Instructions Recorded Confirmed pilocarpine HCl 5 mg tablet 5 mg PO QID 04/24/22 01/07/24 tramadol 50 mg tablet 50 mg PO BID PRN 04/24/22 01/07/24 acetaminophen 325 mg tablet 650 mg PO Q6H PRN 07/21/22 01/07/24 ammonium lactate 12 % topical cream 12 applic topical .Daily as needed 07/21/22 08/30/23 PRN multivitamin 1 tab PO QDAY 07/21/22 01/07/24 folic acid 1 mg tablet 1 mg PO QDAY 07/22/22 01/07/24 methotrexate sodium 2.5 mg tablet 15 mg PO QWEEK 07/22/22 01/07/24 sulfasalazine 500 mg tablet 1 - 1.5 g PO .ud 07/22/22 01/07/24 rosuvastatin 40 mg tablet 40 mg PO QDAY 01/21/23 01/07/24 aspirin 81 mg chewable tablet 1 tab PO 05/24/23 08/30/23 nitroglycerin 0.4 mg sublingual 0.4 mg sublingual PRN 05/24/23 08/30/23 tablet omeprazole 40 mg capsule,delayed 40 mg PO DAILY 05/24/23 01/07/24 release calcium citrate 200 mg 3 tab PO BID 05/31/23 01/07/24 calcium-vitamin D3 6.25 mcg (250 unit) tablet (Citracal-D3 Petites) melatonin 3 mg capsule 3 mg PO QHS 08/30/23 08/30/23 diltiazem HCl 120 mg mg PO 01/07/24 capsule,extended release 24 hr empagliflozin 10 mg tablet 10 mg PO DAILY 01/07/24 01/07/24 (Jardiance) Previous Rx's Medication Instructions Recorded estradiol 0.01% (0.1 mg/gram) 0.5 g vaginal 2XW #42.5 grams 02/08/23 vaginal cream (Estrace) alendronate 70 mg tablet (Fosamax) 70 mg PO QWEEK #14 tabs 02/24/23 losartan 25 mg tablet 25 mg PO BID #180 tabs 06/10/23 Allergies Allergy/AdvReac Type Severity Reaction Status Date / Time cephalexin Allergy Mild Breathing Verified 08/30/23 10:08 problems Cephalosporins Allergy Mild Hives Verified 08/30/23 10:08 codeine Allergy Mild Hives Verified 08/30/23 10:08 [facility] Medical History (Updated 08/30/23 @ 10:29 by Love Calabrese MD) History of thyroid nodule (2002) ?Z86.39 - Personal history of other endocrine, nutritional and metabolic disease (ICD-10) History of migraine ?Z86.69 - Personal history of other diseases of the nervous system and sense organs (ICD-10) Surgical History (Updated 05/24/23 @ 12:05 by Love Calabrese MD) History of melanoma in situ (2005) ?Z86.006 - Personal history of melanoma in-situ (ICD-10) History of basal cell carcinoma of skin ?Z85.828 - Personal history of other malignant neoplasm of skin (ICD-10) History of hand surgery (1979) ?Z98.890 - Other specified postprocedural states (ICD-10) History of foot surgery (1996) ?Z98.890 - Other specified postprocedural states (ICD-10) History of colonoscopy (07/2014) ?Z98.890 - Other specified postprocedural states (ICD-10) Family History (Updated 02/09/23 @ 14:25 by Vanessa Hurley MD) Mother Breast cancer, Onset Age: 55 Pacemaker Stroke Coronary artery disease Uterine cancer Ovarian cancer Osteoporosis Father COPD (chronic obstructive pulmonary disease) Alcohol dependence Social History Narrative: , retired speech pathologist, 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 Does not drink alcohol Exercises two times per week- walking, also trains 2 dogs Non-smoker Smoking Status: Never smoker Little interest or pleasure in doing things: not at all Feeling down, depressed, or hopeless: not at all Exam Const: Vital Signs, click to edit/add: Vital Signs - 24 hr 01/07/24 16:24 Temperature 97.6 F Pulse Rate [Pulse Oximeter] 67 Respiratory Rate 18 Blood Pressure [Ri ght Upper Arm] 145/76 H Pulse Oximetry 98 Oxygen Delivery Me thod Room Air Course Vital Signs Vital signs: Initial Vital Signs Temperature 97.6 F 01/07/24 16:24 Temperature Source Temporal Artery Scan 01/07/24 16:24 Pulse Rate 67 01/07/24 16:24 Respiratory Rate 18 01/07/24 16:24 Blood Pressure 145/76 H 01/07/24 16:24 Blood Pressure Mean 99 01/07/24 16:24 Blood Pressure Position Supine 01/07/24 16:24 Pulse Oximetry 98 01/07/24 16:24 Oxygen Delivery Method Room Air 01/07/24 16:24 Vital Signs Temperature 97.6 F 01/07/24 16:24 Pulse Rate 67 01/07/24 16:24 Respiratory Rate 18 01/07/24 16:24 Blood Pressure 145/76 H 01/07/24 16:24 Pulse Oximetry 98 01/07/24 16:24 Oxygen Delivery Method Room Air 01/07/24 16:24 Temperature 97.6 F 01/07/24 16:24 Pulse Rate 67 01/07/24 16:24 Respiratory Rate 18 01/07/24 16:24 Blood Pressure 145/76 H 01/07/24 16:24 Pulse Oximetry 98 01/07/24 16:24 Oxygen Delivery Method Room Air 01/07/24 16:24 Discharge Plan Discharge Prescriptions: No Action pilocarpine HCl 5 mg tablet 5 mg PO QID tramadol 50 mg tablet 50 mg PO BID PRN estradiol [Estrace] 0.01 % (0.1 mg/gram) cream 0.5 g vaginal 2XW Qty: 42.5 3RF Rx Instructions: Use nightly for 2 weeks, then twice weekly. May apply with finger. omeprazole 40 mg capsule,delayed release(DR/EC) 40 mg PO DAILY nitroglycerin 0.4 mg tablet, sublingual 0.4 mg sublingual PRN aspirin 81 mg tablet,chewable 1 tab PO ammonium lactate 12 % cream 12 applic topical .Daily as needed PRN multivitamin Tablet 1 tab PO QDAY acetaminophen 325 mg tablet 650 mg PO Q6H PRN sulfasalazine 500 mg tablet 1 - 1.5 g PO .ud Patient Comments: 1 tablet AM and 2 tablets PM Rx Instructions: give with food (meal/snack) methotrexate sodium 2.5 mg tablet 15 mg PO QWEEK folic acid 1 mg tablet 1 mg PO QDAY alendronate [Fosamax] 70 mg tablet 70 mg PO QWEEK Qty: 14 4RF rosuvastatin 40 mg tablet 40 mg PO QDAY melatonin 3 mg capsule 3 mg PO QHS diltiazem HCl 120 mg capsule,extended release 24hr PO Jardiance 10 mg tablet 10 mg PO DAILY calcium citrate-vitamin D3 [Citracal-D3 Petites] 200 mg-6.25 mcg (250 unit) tablet 3 tab PO BID losartan 25 mg tablet 25 mg PO BID Qty: 180 0RF Follow Up/Referrals: Love Calabrese MD [Primary Care Provider] -
== END 2024-01-07 17:45 | disposition home or self-care (01) ==
PROVIDERS: Emergency Provider Emergency Medicine; PCP Internal Medicine
DX: Z53.21 Procedure and treatment not carried out due to patient leaving prior to being seen by health care provider (principal)
CPT/HCPCS: 99281

== ENCOUNTER 2025-09-24 09:42 | Outpatient (CLI) | payer OTHER, SELFPAY | END 2025-09-24 09:43 | disposition home or self-care (01) | LOC: RAD 09:44 | PROVIDERS: Visit Provider Internal Medicine Cardiovascular Disease | DX: I35.2 Nonrheumatic aortic (valve) stenosis with insufficiency (principal); I51.7 Cardiomegaly; I34.0 Nonrheumatic mitral (valve) insufficiency | CPT/HCPCS: 93306 ==